=== PATIENT | female | born 1935 | race Caucasian/White ===

== ENCOUNTER 2017-07-02 10:27 | Emergency (ER) | payer MEDICARE, OTHER ==
[~2017-07-02] VITALS: Ht 162.6 cm; Wt 53.5 kg
[~2017-07-02 10:27] MED LIST: "\\\"BP MED\\\""; "\\\"CHOLESTEROL MED\\\""; ASPI325 PO
[2017-07-02 11:26] LABS: BASOPHILS ABSOLUTE AUTO 0.07 K/mm3 (0.00-0.23); BASOPHILS PERCENT AUTO 1 % (0-2); EOSINOPHILS ABSOLUTE AUTO 0.24 K/mm3 (0.00-0.68); EOSINOPHILS PERCENT AUTO 3 % (0-6); Hematocrit 42.9 % (33.0-51.0); Hemoglobin 13.4 g/dL (11.5-16.0); IMMATURE GRAN ABSOLUTE AUTO 0.01 K/mm3 (0.00-0.10); IMMATURE GRAN PERCENT AUTO 0 % (0-1); LYMPHOCYTES ABSOLUTE AUTO 2.37 K/mm3 (0.84-5.20); LYMPHOCYTES PERCENT AUTO 33 % (21-46); MONOCYTES ABSOLUTE AUTO 0.83 K/mm3 (0.16-1.47); MONOCYTES PERCENT AUTO 12 % (4-13); Mean Corpuscular HGB 28.3 pg (26.0-34.0); Mean Corpuscular HGB Conc 31.2 g/dL (31.5-36.5); Mean Corpuscular Volume 91 fL (80-100); NEUTROPHILS ABSOLUTE AUTO 3.69 K/mm3 (1.96-9.15); NEUTROPHILS PERCENT AUTO 51 % (41-73); Platelet Count 352 K/mm3 (150-400); RDW Coefficient Variation 13.5 % (11.7-14.2); RDW Standard Deviation 44.7 fL (35.1-46.3); Red Blood Cell Count 4.74 M/mm3 (3.80-5.20); White Blood Cell Count 7.21 K/mm3 (4.00-11.30)
[2017-07-02 11:49] LABS: Troponin I <0.015 ng/mL (0.000-0.040)
[2017-07-02 11:52] LABS: Alanine Aminotransfer (ALT/SGP 17 U/L (12-78); Albumin/Globulin Ratio 1.1 (0.8-1.8); Alk Phos 62 U/L (50-136); Anion Gap 8 mmol/L (6-16); Aspartate Aminotrans (AST/SGOT 20 U/L (12-37); Bilirubin, Total 0.3 mg/dL (0.1-1.0); Blood Urea Nitrogen 24 mg/dL (8-24); Bun/Creatinine Ratio 16.2 (12.0-20.0); CO2, Blood 25 mmol/L (21-32); Chloride, Blood 106 mmol/L (98-108); Creatinine, Blood 1.48 mg/dL (0.40-1.00); Globulin, Blood 3.7 g/dL (2.2-4.0); Glomerular Filtration Rate 36 (60-); Glucose, Blood 113 mg/dL (70-99); Potassium, Blood 4.6 mmol/L (3.5-5.5); Sodium, Blood 139 mmol/L (136-145); Total Protein, Blood 7.7 g/dL (6.4-8.2)
[2017-07-02] MEDS ORDERED: CARV6.25 PO (14:47)
[2017-07-02] MEDS ORDERED: ALBU90OI6 INH (14:47)
[2017-07-02 15:37] LABS: Source, Urine Clean Catch
[2017-07-02 15:43] LABS: Bilirubin, Urine Neg (Neg); Blood, Urine Neg (Neg); Glucose Qualitative, Urine Neg (Neg); Ketones, Urine Neg (Neg); Leukocyte Esterase, Urine Neg (Neg); Nitrite, Urine Neg (Neg); Protein, Urine 3+ (Neg); Specific Gravity, Urine 1.015 (1.003-1.022); Urobilinogen, Urine NORM (Normal)
[2017-07-02 15:56] LABS: Appearance, Urine Clear (Clear); Color, Urine Pale Yellow (P-Yellow)
[2017-07-02 15:59] LABS: Bacteria Rare /hpf; Red Blood Cells, Urine 0-2 /hpf (0-2); Squamous Epithelial Cells Few /hpf (Few); White Blood Cells, Urine 0-2 /hpf (0-5)
== END 2017-07-02 16:38 | disposition home or self-care (01) ==
LOC: ER 10:27
PROVIDERS: Emergency Medicine
DX: R42 Dizziness and giddiness (principal); I10 Essential (primary) hypertension; Z79.82 Long term (current) use of aspirin; Z79.899 Other long term (current) drug therapy; E78.00 Pure hypercholesterolemia, unspecified; Z87.891 Personal history of nicotine dependence
CPT/HCPCS: 36415; 71046; 80053; 81001; 84484; 85025; 93005; 93010; 96374; 99284

== ENCOUNTER 2017-09-28 15:35 | Emergency (ER) | payer MEDICARE, OTHER ==
[~2017-09-28] VITALS: Ht 160 cm; Wt 65.8 kg
[~2017-09-28 15:35] MED LIST changes: +ALBU90OI6 INH; +CARV6.25 PO
[2017-09-28 16:31] LABS: BASOPHILS ABSOLUTE AUTO 0.08 K/mm3 (0.00-0.23); BASOPHILS PERCENT AUTO 1 % (0-2); EOSINOPHILS PERCENT AUTO 5 % (0-6); Hematocrit 41.5 % (33.0-51.0); Hemoglobin 12.8 g/dL (11.5-16.0); IMMATURE GRAN ABSOLUTE AUTO 0.01 K/mm3 (0.00-0.10); IMMATURE GRAN PERCENT AUTO 0 % (0-1); LYMPHOCYTES ABSOLUTE AUTO 2.36 K/mm3 (0.84-5.20); LYMPHOCYTES PERCENT AUTO 36 % (21-46); MONOCYTES ABSOLUTE AUTO 0.84 K/mm3 (0.16-1.47); MONOCYTES PERCENT AUTO 13 % (4-13); Mean Corpuscular HGB 28.2 pg (26.0-34.0); Mean Corpuscular HGB Conc 30.8 g/dL (31.5-36.5); Mean Corpuscular Volume 91 fL (80-100); NEUTROPHILS ABSOLUTE AUTO 3.02 K/mm3 (1.96-9.15); NEUTROPHILS PERCENT AUTO 46 % (41-73); Platelet Count 303 K/mm3 (150-400); RDW Standard Deviation 43.4 fL (35.1-46.3); Red Blood Cell Count 4.54 M/mm3 (3.80-5.20); White Blood Cell Count 6.61 K/mm3 (4.00-11.30)
[2017-09-28 17:07] LABS: Albumin, Blood 4.1 g/dL (3.4-5.0); Albumin/Globulin Ratio 1.2 (0.8-1.8); Bilirubin, Total 0.4 mg/dL (0.1-1.0); Bun/Creatinine Ratio 17.6 (12.0-20.0); Calcium, Blood 8.9 mg/dL (8.5-10.1); Creatinine, Blood 1.88 mg/dL (0.40-1.00); Globulin, Blood 3.5 g/dL (2.2-4.0); Potassium, Blood 5.8 mmol/L (3.5-5.5); Total Protein, Blood 7.6 g/dL (6.4-8.2)
[2017-09-28] MEDS ORDERED: [UNRECOGNIZED DRUG - REMARK] (19:43)
[2017-09-28 19:54] LABS: International Normalized Ratio 0.96
[2017-09-28 20:55] LABS: Calcium, Ionized (POC) 1.17 mmol/L (1.10-1.46); Chloride (POC) 105 mmol/L (98-108); Creatinine (POC) 1.6 mg/dL (0.6-1.0); Glucose (ISTAT POC) 98 mg/dL (70-99); Hemoglobin (POC) 12.6 g/dL (12.0-16.0); Potassium (POC) 5.5 mmol/L (3.5-5.5); Sodium (POC) 143 mmol/L (135-148); Total CO2 (POC) 25 mmol/L (21-32)
== END 2017-09-28 21:04 | disposition home or self-care (01) ==
LOC: ER 15:35
PROVIDERS: Emergency Medicine
DX: K92.1 Melena (principal); Z79.899 Other long term (current) drug therapy; Z79.82 Long term (current) use of aspirin; E78.00 Pure hypercholesterolemia, unspecified; J44.9 Chronic obstructive pulmonary disease, unspecified; Z87.891 Personal history of nicotine dependence
CPT/HCPCS: 36415; 80047; 80053; 82272; 85014; 85025; 85610; 85730; 93005; 93010; 96360; 99284; J7030

== ENCOUNTER 2018-10-31 13:40 | Emergency (ER) | payer MEDICARE, OTHER ==
[~2018-10-31 13:40] MED LIST changes: +[UNRECOGNIZED DRUG - REMARK]
== END 2018-10-31 14:03 | disposition left against medical advice (07) ==
LOC: ER 13:40
DX: Z53.21 Procedure and treatment not carried out due to patient leaving prior to being seen by health care provider (principal)

== ENCOUNTER 2019-09-26 01:25 | Emergency (ER) | payer MEDICARE, OTHER ==
[~2019-09-26] VITALS: Ht 154.9 cm; Wt 49.9 kg
== END 2019-09-26 02:01 | disposition home or self-care (01) ==
LOC: ER 01:25
DX: F03.90 Unspecified dementia, unspecified severity, without behavioral disturbance, psychotic disturbance, mood disturbance, and anxiety (principal); I10 Essential (primary) hypertension; J44.9 Chronic obstructive pulmonary disease, unspecified; E78.5 Hyperlipidemia, unspecified; Z79.82 Long term (current) use of aspirin; Z79.899 Other long term (current) drug therapy; Z87.891 Personal history of nicotine dependence
CPT/HCPCS: 99284

== ENCOUNTER → 2019-09-28 | Outpatient (CLI) | payer MEDICARE, OTHER ==
[2019-09-28 17:09] LABS: Source, Urine Clean Catch
[2019-09-28 17:58] LABS: Bilirubin, Urine Neg (Neg); Blood, Urine Neg (Neg); Glucose Qualitative, Urine Neg (Neg); Ketones, Urine Neg (Neg); Leukocyte Esterase, Urine 1+ (Neg); Nitrite, Urine Neg (Neg); Protein, Urine 2+ (Neg); Urobilinogen, Urine NORM (Normal)
[2019-09-28 18:07] LABS: Appearance, Urine Clear (Clear); Color, Urine Yellow (P-Yellow)
[2019-09-28 18:08] LABS: Bacteria Mod /hpf; Mucus Light (0-Heavy); Red Blood Cells, Urine 0-2 /hpf (0-2); Squamous Epithelial Cells Few /hpf (Few); White Blood Cells, Urine 0-2 /hpf (0-5)
== END | disposition home or self-care (01) ==
LOC: LAB SHORT 17:06 → LAB 17:06
PROVIDERS: Internal Medicine
DX: N39.0 Urinary tract infection, site not specified (principal)
CPT/HCPCS: 81001; 87086

== ENCOUNTER 2019-10-11 00:33 | Inpatient (IN) | payer MEDICARE, OTHER ==
[~2019-10-11] VITALS: Ht 154.9 cm; Wt 95.2 kg
[2019-10-11] MEDS ORDERED: DONE5 PO (00:44)
[2019-10-11] MEDS ORDERED: PRAV20 PO (00:45)
[2019-10-11] MEDS ORDERED: OLAN5 PO (00:45)
[2019-10-11] MEDS ORDERED: OMEP20ER PO (00:45)
[2019-10-11] MEDS ORDERED: Eucerin Creme454 GM TOP (00:46)
[2019-10-11] MEDS ORDERED: TRAZ100 PO (00:46)
[2019-10-11] MEDS ORDERED: BISA10S PR (00:47)
[2019-10-11] MEDS ORDERED: ACET325 PO (00:47)
[2019-10-11] MEDS ORDERED: ANTACID PLUS A355 M2 PO (00:48)
[2019-10-11] MEDS ORDERED: Loperamide2 MG PO (00:49)
[2019-10-11] MEDS ORDERED: QUET25 PO (00:49)
[2019-10-11 01:57] LABS: BASOPHILS ABSOLUTE AUTO 0.06 K/mm3 (0.00-0.23); BASOPHILS PERCENT AUTO 0 % (0-2); EOSINOPHILS ABSOLUTE AUTO 0.66 K/mm3 (0.00-0.68); EOSINOPHILS PERCENT AUTO 5 % (0-6); Hematocrit 37.4 % (33.0-51.0); Hemoglobin 11.7 g/dL (11.5-16.0); IMMATURE GRAN ABSOLUTE AUTO 0.07 K/mm3 (0.00-0.10); IMMATURE GRAN PERCENT AUTO 1 % (0-1); LYMPHOCYTES ABSOLUTE AUTO 1.87 K/mm3 (0.84-5.20); LYMPHOCYTES PERCENT AUTO 13 % (21-46); MONOCYTES ABSOLUTE AUTO 1.01 K/mm3 (0.16-1.47); MONOCYTES PERCENT AUTO 7 % (4-13); Mean Corpuscular HGB 29.1 pg (26.0-34.0); Mean Corpuscular HGB Conc 31.3 g/dL (31.5-36.5); Mean Corpuscular Volume 93 fL (80-100); NEUTROPHILS PERCENT AUTO 75 % (41-73); RDW Coefficient Variation 13.5 % (11.7-14.2); RDW Standard Deviation 46.3 fL (35.1-46.3); Red Blood Cell Count 4.02 M/mm3 (3.80-5.20); White Blood Cell Count 14.67 K/mm3 (4.00-11.30)
[2019-10-11 02:00] LABS: Albumin, Blood 3.6 g/dL (3.4-5.0); Albumin/Globulin Ratio 0.9 (0.8-1.8); Bilirubin, Total 0.3 mg/dL (0.1-1.0); Bun/Creatinine Ratio 23.1 (12.0-20.0); Calcium, Blood 8.5 mg/dL (8.5-10.1); Creatinine, Blood 1.3 mg/dL (0.40-1.00); Globulin, Blood 4.2 g/dL (2.2-4.0); Total Protein, Blood 7.8 g/dL (6.4-8.2)
[2019-10-11 02:16] LABS: Mean Platelet Volume 10.6 fL (9.1-12.4); Platelet Count 313 K/mm3 (150-400)
[2019-10-11] MEDS ORDERED: Tussin Dm Clea118 ML PO (02:59)
[2019-10-11] MEDS ORDERED: MILK OF MA400 MG/5 M PO (03:02)
[2019-10-11] MEDS ORDERED: SERT100 PO (03:03)
[2019-10-11 11:09] LABS: Source, Urine Clean Catch
[2019-10-11 11:15] LABS: Bilirubin, Urine Neg (Neg); Blood, Urine Neg (Neg); Glucose Qualitative, Urine Neg (Neg); Ketones, Urine Neg (Neg); Leukocyte Esterase, Urine Neg (Neg); Nitrite, Urine Neg (Neg); Protein, Urine 3+ (Neg); Urobilinogen, Urine NORM (Normal)
[2019-10-11 11:29] LABS: Appearance, Urine Clear (Clear); Color, Urine Yellow (P-Yellow)
[2019-10-11 11:30] LABS: Red Blood Cells, Urine 0-2 /hpf (0-2); White Blood Cells, Urine 0-2 /hpf (0-5)
[2019-10-11 11:31] LABS: Bacteria Few /hpf; Squamous Epithelial Cells Rare /hpf (Few)
[2019-10-11 12:51] LABS: Hematocrit 31.4 % (33.0-51.0); Hemoglobin 9.6 g/dL (11.5-16.0); Mean Corpuscular HGB 29.1 pg (26.0-34.0); Mean Corpuscular HGB Conc 30.6 g/dL (31.5-36.5); Mean Corpuscular Volume 95 fL (80-100); Mean Platelet Volume 10.6 fL (9.1-12.4); Platelet Count 265 K/mm3 (150-400); RDW Coefficient Variation 13.6 % (11.7-14.2); RDW Standard Deviation 47.5 fL (35.1-46.3); White Blood Cell Count 14.86 K/mm3 (4.00-11.30)
[2019-10-11 13:36] LABS: Albumin, Blood 2.9 g/dL (3.4-5.0); Albumin/Globulin Ratio 0.8 (0.8-1.8); Bilirubin, Total 0.3 mg/dL (0.1-1.0); Bun/Creatinine Ratio 23.5 (12.0-20.0); Calcium, Blood 7.8 mg/dL (8.5-10.1); Creatinine, Blood 1.36 mg/dL (0.40-1.00); Globulin, Blood 3.5 g/dL (2.2-4.0); Potassium, Blood 4.9 mmol/L (3.5-5.5); Total Protein, Blood 6.4 g/dL (6.4-8.2)
[2019-10-12 04:30] LABS: BASOPHILS ABSOLUTE AUTO 0.02 K/mm3 (0.00-0.23); BASOPHILS PERCENT AUTO 0 % (0-2); EOSINOPHILS ABSOLUTE AUTO 0.04 K/mm3 (0.00-0.68); EOSINOPHILS PERCENT AUTO 0 % (0-6); Hematocrit 26.7 % (33.0-51.0); Hemoglobin 7.9 g/dL (11.5-16.0); IMMATURE GRAN ABSOLUTE AUTO 0.05 K/mm3 (0.00-0.10); IMMATURE GRAN PERCENT AUTO 0 % (0-1); LYMPHOCYTES ABSOLUTE AUTO 0.86 K/mm3 (0.84-5.20); LYMPHOCYTES PERCENT AUTO 7 % (21-46); MONOCYTES ABSOLUTE AUTO 1.12 K/mm3 (0.16-1.47); MONOCYTES PERCENT AUTO 9 % (4-13); Mean Corpuscular HGB 28.6 pg (26.0-34.0); Mean Corpuscular HGB Conc 29.6 g/dL (31.5-36.5); Mean Corpuscular Volume 97 fL (80-100); Mean Platelet Volume 10.9 fL (9.1-12.4); NEUTROPHILS ABSOLUTE AUTO 9.82 K/mm3 (1.96-9.15); NEUTROPHILS PERCENT AUTO 83 % (41-73); Platelet Count 234 K/mm3 (150-400); RDW Coefficient Variation 13.8 % (11.7-14.2); RDW Standard Deviation 49.1 fL (35.1-46.3); Red Blood Cell Count 2.76 M/mm3 (3.80-5.20); White Blood Cell Count 11.91 K/mm3 (4.00-11.30)
[2019-10-12 05:09] LABS: Bun/Creatinine Ratio 25.5 (12.0-20.0); Calcium, Blood 7.8 mg/dL (8.5-10.1); Creatinine, Blood 1.53 mg/dL (0.40-1.00); Magnesium, Blood 2.8 mg/dL (1.6-2.4); Potassium, Blood 5.5 mmol/L (3.5-5.5)
[2019-10-14] MEDS ORDERED: MELATONIN5 M1 PO (11:25)
== END 2019-10-14 12:58 | disposition home health service (06) | DRG 482 ==
LOC: ER 00:33 → MEDS 00:35
PROVIDERS: Emergency Medicine; Orthopaedic Surgery; ADMIT Internal Medicine
PROC: 0QH636Z Insertion of Intramedullary Internal Fixation Device into Right Upper Femur, Percutaneous Approach (ICD-10-PCS; principal; 2019-10-11 14:00)
DX: S72.141A Displaced intertrochanteric fracture of right femur, initial encounter for closed fracture (principal); W19.XXXA Unspecified fall, initial encounter; F03.90 Unspecified dementia, unspecified severity, without behavioral disturbance, psychotic disturbance, mood disturbance, and anxiety; N18.3 Chronic kidney disease, stage 3 (moderate); E78.5 Hyperlipidemia, unspecified; K21.9 Gastro-esophageal reflux disease without esophagitis; I12.9 Hypertensive chronic kidney disease with stage 1 through stage 4 chronic kidney disease, or unspecified chronic kidney disease; J44.9 Chronic obstructive pulmonary disease, unspecified; E87.5 Hyperkalemia; R09.02 Hypoxemia; D63.1 Anemia in chronic kidney disease; D50.0 Iron deficiency anemia secondary to blood loss (chronic)
CPT/HCPCS: 36415; 64450; 71045; 72170; 73502; 80048; 80053; 81001; 83735; 85025; 85027; 93005; 93010; 94762; 96374-59; 97162; 97165; 97530; 99285-25; A9270; A9270-GY; C1713; C1769; J0360; J0690; J1100; J1885; J2370; J2405; J2704; J3010; J7030; J7120

== ENCOUNTER 2019-11-03 00:22 | Day surgery (SDC) | payer MEDICARE, OTHER ==
[~2019-11-03 00:22] MED LIST changes: +ACET325 PO; +ANTACID PLUS A355 M2 PO; +BISA10S PR; +DONE5 PO; +Eucerin Creme454 GM TOP; +Loperamide2 MG PO; +MELATONIN5 M1 PO; +MILK OF MA400 MG/5 M PO; +OLAN5 PO; +OMEP20ER PO; +PRAV20 PO; +QUET25 PO; +SERT100 PO; +TRAZ100 PO; +Tussin Dm Clea118 ML PO
== END 2019-11-03 23:48 | disposition home or self-care (01) ==
LOC: WOUND 00:22
DX: L89.610 Pressure ulcer of right heel, unstageable (principal); I73.9 Peripheral vascular disease, unspecified; J44.9 Chronic obstructive pulmonary disease, unspecified; I10 Essential (primary) hypertension; E78.5 Hyperlipidemia, unspecified; Z87.891 Personal history of nicotine dependence; Z79.899 Other long term (current) drug therapy; Z79.82 Long term (current) use of aspirin
CPT/HCPCS: G0463

== ENCOUNTER 2019-11-10 00:17 | Day surgery (SDC) | payer MEDICARE, OTHER | END 2019-11-10 23:20 | disposition home or self-care (01) | LOC: WOUND 00:17 | DX: L89.610 Pressure ulcer of right heel, unstageable (principal); I73.9 Peripheral vascular disease, unspecified; J44.9 Chronic obstructive pulmonary disease, unspecified; I10 Essential (primary) hypertension; E78.5 Hyperlipidemia, unspecified; Z87.891 Personal history of nicotine dependence; Z79.82 Long term (current) use of aspirin; Z79.899 Other long term (current) drug therapy | CPT/HCPCS: G0463 ==

== ENCOUNTER 2019-11-17 00:14 | Day surgery (SDC) | payer MEDICARE, OTHER | END 2019-11-17 22:49 | disposition home or self-care (01) | LOC: WOUND 00:14 | DX: L89.610 Pressure ulcer of right heel, unstageable (principal); I73.9 Peripheral vascular disease, unspecified; J44.9 Chronic obstructive pulmonary disease, unspecified; I10 Essential (primary) hypertension; E78.5 Hyperlipidemia, unspecified; Z87.891 Personal history of nicotine dependence; Z79.82 Long term (current) use of aspirin; Z79.899 Other long term (current) drug therapy | CPT/HCPCS: G0463 ==

== ENCOUNTER 2019-11-24 00:23 | Day surgery (SDC) | payer MEDICARE, OTHER ==
[2019-11-29] MEDS ORDERED: DONE5 PO (09:06)
[2019-11-29] MEDS ORDERED: TRAZ100 PO (09:06)
== END 2019-11-24 23:18 | disposition home or self-care (01) ==
LOC: WOUND 00:23
DX: L89.610 Pressure ulcer of right heel, unstageable (principal); I73.9 Peripheral vascular disease, unspecified; Z87.891 Personal history of nicotine dependence; J44.9 Chronic obstructive pulmonary disease, unspecified; I10 Essential (primary) hypertension; E78.5 Hyperlipidemia, unspecified

== ENCOUNTER 2019-11-29 09:52 | Day surgery (SDC) | payer MEDICARE, OTHER ==
[~2019-11-29] VITALS: Ht 165.1 cm; Wt 41.8 kg
[2019-11-29 10:43] LABS: BASOPHILS ABSOLUTE AUTO 0.07 K/mm3 (0.00-0.23); BASOPHILS PERCENT AUTO 1 % (0-2); EOSINOPHILS ABSOLUTE AUTO 0.32 K/mm3 (0.00-0.68); EOSINOPHILS PERCENT AUTO 5 % (0-6); Hematocrit 26.3 % (33.0-51.0); Hemoglobin 7.5 g/dL (11.5-16.0); IMMATURE GRAN ABSOLUTE AUTO 0.03 K/mm3 (0.00-0.10); IMMATURE GRAN PERCENT AUTO 1 % (0-1); LYMPHOCYTES ABSOLUTE AUTO 1.52 K/mm3 (0.84-5.20); LYMPHOCYTES PERCENT AUTO 26 % (21-46); MONOCYTES ABSOLUTE AUTO 0.87 K/mm3 (0.16-1.47); MONOCYTES PERCENT AUTO 15 % (4-13); Mean Corpuscular HGB 25.4 pg (26.0-34.0); Mean Corpuscular HGB Conc 28.5 g/dL (31.5-36.5); Mean Corpuscular Volume 89 fL (80-100); Mean Platelet Volume 9.5 fL (9.1-12.4); NEUTROPHILS ABSOLUTE AUTO 3.08 K/mm3 (1.96-9.15); NEUTROPHILS PERCENT AUTO 52 % (41-73); NRBC ABSOLUTE 0.02 K/mm3 (0.00-0.02); NRBC Auto 0.3 /100 WBC (0.0-0.2); Platelet Count 335 K/mm3 (150-400); RDW Coefficient Variation 14.9 % (11.7-14.2); RDW Standard Deviation 48.5 fL (35.1-46.3); Red Blood Cell Count 2.95 M/mm3 (3.80-5.20); White Blood Cell Count 5.89 K/mm3 (4.00-11.30)
[2019-11-29 11:02] LABS: Bun/Creatinine Ratio 25.4 (12.0-20.0); Calcium, Blood 7.8 mg/dL (8.5-10.1); Creatinine, Blood 1.22 mg/dL (0.40-1.00); Potassium, Blood 4.9 mmol/L (3.5-5.5)
--- NOTE | 2019-11-29 14:04 | NUR ---
PT RETURNS FROM PROCEDURE WITH FEM STOP IN PLACE TO THE LEFT GROIN SITE, LARGE HEMATOMA NOTED. PRESSURE APPLIED. DAUGHTER AT BEDSIDE. PT CONFUSED
--- NOTE | 2019-11-29 14:19 | NUR ---
Fentanyl 25 mcg IV given for restlessness.
--- NOTE | 2019-11-29 14:29 | NUR ---
PT RESTING QUIETLY.
[2019-11-29 14:32] LABS: BASOPHILS ABSOLUTE AUTO 0.07 K/mm3 (0.00-0.23); BASOPHILS PERCENT AUTO 1 % (0-2); EOSINOPHILS ABSOLUTE AUTO 0.33 K/mm3 (0.00-0.68); EOSINOPHILS PERCENT AUTO 5 % (0-6); Hematocrit 24.4 % (33.0-51.0); Hemoglobin 6.8 g/dL (11.5-16.0); IMMATURE GRAN ABSOLUTE AUTO 0.02 K/mm3 (0.00-0.10); IMMATURE GRAN PERCENT AUTO 0 % (0-1); LYMPHOCYTES ABSOLUTE AUTO 1.78 K/mm3 (0.84-5.20); LYMPHOCYTES PERCENT AUTO 29 % (21-46); MONOCYTES ABSOLUTE AUTO 0.91 K/mm3 (0.16-1.47); MONOCYTES PERCENT AUTO 15 % (4-13); Mean Corpuscular HGB 25.2 pg (26.0-34.0); Mean Corpuscular HGB Conc 27.9 g/dL (31.5-36.5); Mean Corpuscular Volume 90 fL (80-100); Mean Platelet Volume 10.4 fL (9.1-12.4); NEUTROPHILS ABSOLUTE AUTO 3.05 K/mm3 (1.96-9.15); NEUTROPHILS PERCENT AUTO 50 % (41-73); NRBC ABSOLUTE 0.03 K/mm3 (0.00-0.02); NRBC Auto 0.5 /100 WBC (0.0-0.2); Platelet Count 350 K/mm3 (150-400); RDW Standard Deviation 49.2 fL (35.1-46.3); White Blood Cell Count 6.16 K/mm3 (4.00-11.30)
--- NOTE | 2019-11-29 14:43 | NUR ---
PRESSURE RELEASED FROM FEMSTOP. LEFT GROIN SITE SOFT. PT RESTING. OXYGEN APPLIED 3L/NC AT 1420 FOR SP02 81%.
--- NOTE | 2019-11-29 14:50 | NUR ---
GROIN HARD. FEMSTOP INFLATED TO 160MM HGB. MANUAL PRESSURE HELD.SEE VS FOR BP CHANGES. IV INFUSING AT 200 ML/HR.
--- NOTE | 2019-11-29 15:00 | NUR ---
IV DECREASED TO 100 ML/HR. BP STABLE. GROIN SITE SOFT NONTENDER. FEMSTOP CONTINUES.
--- NOTE | 2019-11-29 15:20 | NUR ---
DR. YANEZ HERE TO EVALUATE PT. ORDERS GIVEN TO TRANSFUSE BLOOD.
--- NOTE | 2019-11-29 15:30 | NUR ---
BP 90/50. IV FLUIDS WIDE OPEN ON PRESSURE BAG. DR. YANEZ NOTIFIED. BED IN [place].
--- NOTE | 2019-11-29 15:32 | NUR ---
BP 88/44. SITE SOFT. FEMSTOP IN PLACE.
--- NOTE | 2019-11-29 15:45 | NUR ---
BLOOD OBTAINED TO INFUSE. PT TAKEN TO DEICER FINISHER.
[2019-11-29 18:21] LABS: Source, Urine Catheter
[2019-11-29 18:29] LABS: Bilirubin, Urine Neg (Neg); Blood, Urine 1+ (Neg); Glucose Qualitative, Urine Neg (Neg); Ketones, Urine Neg (Neg); Leukocyte Esterase, Urine Neg (Neg); Nitrite, Urine Neg (Neg); Protein, Urine 2+ (Neg); Urobilinogen, Urine NORM (Normal)
--- NOTE | 2019-11-29 18:29 | NUR ---
ADMIT ASSESSMENT- PT ADMITTED TO ICU EXTENDED RECOVERY. PT ASLEEP, RESPIRATORY RATE 10 BPM UNLABORED, OXYGEN SATURATIONS 95% ON ROOM AIR. AWAKENS TO TOUCH, OPENS EYES, MUMBLES, BACK TO SLEEP QUICKLY. NSR. BP ELEVATED. ABDOMEN SOFT. LARGE HEMATOMA LEFT GROIN, ANGIOSEAL INTACT RIGHT FEMORAL SITE DI, NO HEMATOMA. DIFFICULTY OBTAINING PULSES, DOPPLE RIGHT DP/RIGHT PT, LEFT PT, LEFT FOOT COLD, DUSKY. REVIEWED WITH ARCHITECTURAL MODELER RN, WILL NOTIFY DR. YANEZ. PIV X 2 INTACT, NS TKO
[2019-11-29 18:39] LABS: Appearance, Urine Clear (Clear); Bacteria Not Seen /hpf; Color, Urine Yellow (P-Yellow); Red Blood Cells, Urine 0-2 /hpf (0-2); Squamous Epithelial Cells Not Seen /hpf (Few); White Blood Cells, Urine 0-2 /hpf (0-5)
--- NOTE | 2019-11-29 19:29 | NUR ---
PT DOPPLER PULSED NOTED X4 IN FEET BUT VERY FAINT ON L SIDE. DR YANEZ IN TO SEE AND EVALUATE PT STATUS AND WILL F/U WITH NIGHTS. PT REMAINS QUITE SEDATE NOT MAKING GOOD EYE CONTACT OR VERBAL RESPONSE AT THIS TIME. ROCHA IS PATENT OF CLEAR URINE. AT THIS TIME. LUNGS ARE CLEAR, L GROIN HEMATOMA REMAINS UNCHANGED AND SHOWN TO NOC SHIFT RN. THERE IS NOT CURRENTLY ANY IVF INFUSING DUE TO ELEVATED BP NOTED. PT IS IN SR.
--- NOTE | 2019-11-29 20:20 | NUR ---
ASSUMED CARE AT 1915 PT LAYING IN BED AND SLEEPING. ROCHA IS PATENT AND DRAINING TO GRAVITY. LT PEDAL AND TIBIAL PULSE FAINTLY FOUND WITH DOPPLER. RT PEDAL PULSE MORE EASILY FOUND WITH DOPPLER. LT FOOT COOLER THEN RT FOOT. BILATERAL GROIN SITES SOFT WITH CLEAN AND DRY DRESSINGS INTACT. SBP 150'S.
--- NOTE | 2019-11-29 20:57 | NUR ---
PO MEDS PO MEDICATIONS HELD AT THIS TIME D/T PT'S DROWSINESS.
[2019-11-30 03:56] LABS: Hemoglobin 8.9 g/dL (11.5-16.0)
[2019-11-30 04:20] LABS: Bun/Creatinine Ratio 23.6 (12.0-20.0); Calcium, Blood 6.9 mg/dL (8.5-10.1); Creatinine, Blood 1.06 mg/dL (0.40-1.00); Potassium, Blood 4.4 mmol/L (3.5-5.5)
--- NOTE | 2019-11-30 05:56 | NUR ---
END OF SHIFT SUMMARY PT LAYING IN BED. ROCHA PATENT AND DRAINING TO GRAVITY. BILATERAL GROIN SITES SOFT, AND DRESSING DRY AND INTACT. PT CALM IN BED BUT CONFUSED AND WE ARE UNABLE TO UNDERSTAND HER CONVERSATION. LEFT PEDAL AND TIBIAL PULSES FOUND MORE EASILY WITH DOPPLER. LT FOOT WARMER TO TOUCH. NORMAL SALINE INFUSING AT 75 ML/HR. WILL CONTINUE TO MONITOR UNTILL REPORT IS GIVEN TO DAY RN.
--- NOTE | 2019-11-30 07:15 | NUR ---
ASSUMED CARE/DR YANEZ BEDSIDE REPORT RECIEVED. PT IS RESTING IN BED QUIETLY. AWAKENS TO VERBAL STIMULI. PT IS DROWSEY. PT IS ALERT TO SELF ONLY, PT IS CONFUSED AND FORGETFUL. PT IS FIDGETING AND PICKING AT LINES/TUBES. FOUND PT TO HAVE PULLED OUT RIGHT AC IV AND REMOVED DRESSING TO LEFT FOOT. PT WITH RIGHT GROIN SITE STABLE WITH OPSITE DRESSING IN PLACE. LEFT GROIN SITE WITH DIFFUSE SWELLING INTO LOWER ABD AND BRUISING NOTED AT SITE, UP LEFT FLANK, AND DOWN TO PERIAREA. PT VERY TENDER WITH PALPATION OF SITE. DR YANEZ UP TO SEE PT AT THIS TIME. DR. YANEZ STATES SITE LOOKS OK AND IS UNCHANGED FROM PRIOR ASSESSMENT. VITAL SIGNS STABLE AT THIS TIME. PT WITH STRONG DOPPLER PULSES PRESENT TO BILAT LOWER EXTREMITIES. HEEL PROTECTOR AND FOAM DRESSING IN PLACE TO RIGHT HEEL. NS INFUSING AT 75 ML/HR VIA LEFT AC IV. WILL CONTINUE TO MONITOR.
--- NOTE | 2019-11-30 17:53 | NUR ---
SHIFT SUMMARY PT DOING WELL THIS SHIFT. PT HAS REMAINED ALERT, BUT CONFUSED AND FORGETFUL THIS SHIFT. PT FIDGETING WITH LINES/CORDS AT TIMES. PT UNABLE TO BE REDIRECTED. BILATERAL FEMORAL GROIN ACCESS SITES HAVE REMAINED STABLE AND UNCHANGED FROM PRIOR ASSESSMENT. PULSES PRESENT TO DISTAL LOWER EXTREMITIES WITH DOPPLER. VITAL SIGNS HAVE REMAINED STABLE. PT WITH GOOD URINE OUTPUT THIS SHIFT. ROCHA CATHETER DC'D THIS AFTERNOON. DR YANEZ REQUESTED TO HAVE PT'S DAUGHTER COME IN TO SEE PT AND TALK WITH DR PRIOR TO PT DISCHARGE. PT DAUGHTER HERE AT BEDSIDE AT THIS TIME, PT PENDING DISCHARGE AFTER EVALUATION BY DR YANEZ. WILL CONTINUE TO MONITOR AND REPORT OFF TO ONCOMING RN.
--- NOTE | 2019-11-30 18:58 | NUR ---
DISCHARGE DISCHARGE PAPERWORK AND INSTRUCTIONS REVIEWED WITH PT'S DAUGHTER AND PT. PT TO BE TAKEN OUT TO VEHICLE VIA WHEELCHAIR WITH SOUND ENGINEER AUDIO CONTROL. ALL PT BELONGINGS RETURNED TO PT.
== END 2019-11-30 19:00 | disposition home or self-care (01) ==
LOC: MHTC 09:52 → ICUW 16:30 → MHTC 11-30 19:00
PROVIDERS: Radiology Diagnostic Radiology
DX: I70.234 Atherosclerosis of native arteries of right leg with ulceration of heel and midfoot (principal); L97.419 Non-pressure chronic ulcer of right heel and midfoot with unspecified severity; I12.9 Hypertensive chronic kidney disease with stage 1 through stage 4 chronic kidney disease, or unspecified chronic kidney disease; N18.9 Chronic kidney disease, unspecified; E78.5 Hyperlipidemia, unspecified; Z87.891 Personal history of nicotine dependence; Z79.82 Long term (current) use of aspirin; Z79.899 Other long term (current) drug therapy; D50.0 Iron deficiency anemia secondary to blood loss (chronic)
CPT/HCPCS: 36245; 36415; 37220; 37221; 37224; 37228; 75625; 75710; 75716; 75774; 76937; 80048; 81001; 85014; 85018; 85025; 86850; 86900; 86901; 86923; 99152; 99153; C1725; C1760; C1769; C1876; C1887; C1894; C2623; J0360; J1200; J1644; J2060; J2250; J3010; J7030; J7040; P9016; Q9967

== ENCOUNTER 2019-12-09 08:12 | Day surgery (SDC) | payer MEDICARE, OTHER | END 2019-12-09 22:42 | disposition home or self-care (01) | LOC: WOUND 08:12 | DX: L89.613 Pressure ulcer of right heel, stage 3 (principal); I73.9 Peripheral vascular disease, unspecified; E78.5 Hyperlipidemia, unspecified; I10 Essential (primary) hypertension; J44.9 Chronic obstructive pulmonary disease, unspecified; Z87.891 Personal history of nicotine dependence; F03.90 Unspecified dementia, unspecified severity, without behavioral disturbance, psychotic disturbance, mood disturbance, and anxiety; Z79.82 Long term (current) use of aspirin; Z79.899 Other long term (current) drug therapy ==

== ENCOUNTER 2019-12-15 00:17 | Day surgery (SDC) | payer MEDICARE, OTHER | END 2019-12-15 22:53 | disposition home or self-care (01) | LOC: WOUND 00:17 | DX: L89.613 Pressure ulcer of right heel, stage 3 (principal); I73.9 Peripheral vascular disease, unspecified; I10 Essential (primary) hypertension; J44.9 Chronic obstructive pulmonary disease, unspecified; E78.5 Hyperlipidemia, unspecified; Z87.891 Personal history of nicotine dependence | CPT/HCPCS: G0463 ==

== ENCOUNTER 2020-02-17 00:26 | Day surgery (SDC) | payer MEDICARE, OTHER | END 2020-02-17 22:52 | disposition home or self-care (01) | LOC: WOUND 00:26 | DX: L89.613 Pressure ulcer of right heel, stage 3 (principal); I73.9 Peripheral vascular disease, unspecified; J44.9 Chronic obstructive pulmonary disease, unspecified; E78.5 Hyperlipidemia, unspecified; I10 Essential (primary) hypertension; Z87.891 Personal history of nicotine dependence; F03.90 Unspecified dementia, unspecified severity, without behavioral disturbance, psychotic disturbance, mood disturbance, and anxiety; Z79.82 Long term (current) use of aspirin; Z79.899 Other long term (current) drug therapy | CPT/HCPCS: G0463 ==

== ENCOUNTER 2020-02-25 08:18 | Inpatient (IN) | payer MEDICARE, OTHER ==
[~2020-02-25] VITALS: Ht 154.9 cm; Wt 52.2 kg
[~2020-02-25 08:18] MED LIST changes: -ANTACID PLUS A355 M2 PO; +[UNRECOGNIZED DRUG - OTHER] PO
[2020-02-25 08:40] LABS: BASOPHILS ABSOLUTE AUTO 0.07 K/mm3 (0.00-0.23); BASOPHILS PERCENT AUTO 1 % (0-2); EOSINOPHILS ABSOLUTE AUTO 0.38 K/mm3 (0.00-0.68); EOSINOPHILS PERCENT AUTO 7 % (0-6); Hematocrit 46.9 % (33.0-51.0); Hemoglobin 13.2 g/dL (11.5-16.0); IMMATURE GRAN ABSOLUTE AUTO 0.01 K/mm3 (0.00-0.10); IMMATURE GRAN PERCENT AUTO 0 % (0-1); LYMPHOCYTES ABSOLUTE AUTO 1.93 K/mm3 (0.84-5.20); LYMPHOCYTES PERCENT AUTO 34 % (21-46); MONOCYTES ABSOLUTE AUTO 0.76 K/mm3 (0.16-1.47); MONOCYTES PERCENT AUTO 13 % (4-13); Mean Corpuscular HGB Conc 28.1 g/dL (31.5-36.5); Mean Corpuscular Volume 82 fL (80-100); Mean Platelet Volume 10.1 fL (9.1-12.4); NEUTROPHILS ABSOLUTE AUTO 2.53 K/mm3 (1.96-9.15); NEUTROPHILS PERCENT AUTO 45 % (41-73); Platelet Count 328 K/mm3 (150-400); RDW Coefficient Variation 17.9 % (11.7-14.2); RDW Standard Deviation 50.8 fL (35.1-46.3); Red Blood Cell Count 5.75 M/mm3 (3.80-5.20); White Blood Cell Count 5.68 K/mm3 (4.00-11.30)
[2020-02-25 09:03] LABS: Alanine Aminotransfer (ALT/SGP 16 U/L (12-78); Albumin, Blood 3.6 g/dL (3.4-5.0); Albumin/Globulin Ratio 0.8 (0.8-1.8); Alk Phos 126 U/L (50-136); Anion Gap 3 mmol/L (6-16); Aspartate Aminotrans (AST/SGOT 22 U/L (12-37); Bilirubin, Total 0.2 mg/dL (0.1-1.0); Blood Urea Nitrogen 38 mg/dL (8-24); Bun/Creatinine Ratio 27.9 (12.0-20.0); CO2, Blood 29 mmol/L (21-32); Calcium, Blood 8.2 mg/dL (8.5-10.1); Chloride, Blood 107 mmol/L (98-108); Creatinine, Blood 1.36 mg/dL (0.40-1.00); Globulin, Blood 4.3 g/dL (2.2-4.0); Glomerular Filtration Rate 39 (60-); Glucose, Blood 111 mg/dL (70-99); Potassium, Blood 5.9 mmol/L (3.5-5.5); Sodium, Blood 139 mmol/L (136-145); Total Protein, Blood 7.9 g/dL (6.4-8.2); Troponin I <0.015 ng/mL (0.000-0.040)
--- NOTE | 2020-02-25 11:01 | NUR ---
ED Palliative Care Consult Spoke with Dr Ron and discussed case. Pt has history of dementia and at present Pt is experiencing significant brain bleed. Neurology consulted with Pt not being a candidate for procedural intervention. Pt has POLST with wishes to be DNR and Comfort Measures Only. Pt is resting on gurney upon arrival. Pt is non responsive and appears agitated as evidenced by flailing of extremities. Pt's daughter Clarissa is present during visit. Engaged in therapeutic discussion regarding goals of care. Daughter reports Pt lived at [facility] at some point in the past in which Pt did not do well and daughter brought Pt back to live with her and . Daughter has been Pt's primary caregiver since. Prior to events leading to this ED visit, Pt was independent with ambulation, and was continent of bowel and bladder. Pt did experience significant confusion. Discussed POLST on file. Discussed options for comfort care and hospice. Educated on hospice philosophy with V/U made by daughter. Daughter reports Pt would want to focus on comfort at this stage in her life and woould like Pt placed on hospice. Daughter is requesting Pt be admitted on comfort care until hospice can be arranged. No other concerns reported at this time. Spoke with Dr Ron and Hospitalist Bebo. Discussed case and family wishes. Bebo will admit Pt to [facility] on comfort care with goal of D/C with hospice when arranged. Spoke with Ilan Wang and discussed case. Palliative Care will remain available for symptom management and supportive visits.
--- NOTE | 2020-02-25 17:34 | NUR ---
PT WAS RECIEVED TO ROOM AT 1155 WITH FAMILY PRESENT. PT IS NOT AO AT THIS TIME AND ONLY HAS UNCONTROLLED BODY MOVEMENTS. APPEARS TO HELP TO HAVE BOTH ROXANOL AND ATIVAN GIVEN PER EMAR. PT HAS BEEN CHANGED TWICE AND LOOKS PEACEFULL AT THIS TIME WILL CONTINUE TO MONITOR.
--- NOTE | 2020-02-26 04:46 | NUR ---
SHIFT SUMMARY LYING IN SEMI FOWLERS WITH EYES CLOSED. HAS RESTED WELL AFTER EACH TIME SHE WAS CLEANED AND REPOSITIONED. DAUGHTER WHO IS PRIMARY CAREGIVER AT BEDSIDE. NO NOTE OF PAIN, DISCOMFORT, OR FURTHER NEEDS AT THIS TIME. SAFETY MEASURES IN PLACE. WILL CONTINUE TO MONITOR AND GIVE HAND OFF TO ONCOMING SHIFT USING SBAR DURING BEDSIDE REPORT.
--- NOTE | 2020-02-26 08:51 | NUR ---
Pt resting in bed with her eyes closed. No family at bedside at this time. Pt appears comfortable with no S/S of distress at this time. Will discuss with family regarding choices for hospice agencies available.
--- NOTE | 2020-02-26 11:51 | NUR ---
F/U visit Pt resting in bed with her eyes closed. Pt appears comfortable with no S/S of distress at this time. Pt's family at bedside. Discussed hospice agencies available to choose from. Family reports plan to call and discuss with Pt's daughter Clarissa who Pt lives with. Family expresses no concerns at this time. Receieved call from Bedside RN Grazyna reporting family has chosen [facility]. Called and left message with Caremanager Elenita relaying family's choice for [facility]. Pt will need hospital bed, pump and pad, overbed table, and oxygen. Palliative Care will remain available.
--- NOTE | 2020-02-26 17:19 | NUR ---
PT HAS BEEN TURNED TODAY EVERY COUPLE OF HOURS. PT HAS NOT BEEN WET AND UNRESPONSIVE. FAMILY HAS BEEN IN AND OUT TO SEE HER. PT REPOSITIONED AND MADE COMFORTABLE, BUT NO MEDS HAVE BEEN NEEDED TODAY. WILL CONTINUE TO MONITOR.
--- NOTE | 2020-02-26 20:29 | NUR ---
PATIENT RESTING COMFORTABLY IN BED. DOES NOT APPEAR TO BE IN PAIN AND IS HAVING REGULAR SHALLOW BREATHS. VISITOR AT BEDSIDE.
--- NOTE | 2020-02-27 01:07 | NUR ---
PATIENT AND HER DAUGHTER BOTH SLEEPING. NO NEEDS EXPRESSED.
--- NOTE | 2020-02-27 07:34 | NUR ---
SHIFT SUMMARY PATIENT'S DAUGHTER SPENT THE NIGHT IN PATIENT'S ROOM. PATIENT SLEPT OVERNIGHT WITH NO SIGN OF PAIN OR DIFFICULTY BREATHING. BREATHIN IS SLOW AND SHALLOW. IV'S PATENT AND FLUSHED. BED IN LOWEST POSITION WITH WHEELS LOCKED. CALL LIGHT WITHIN REACH. REPORT GIVEN TO ONCOMING RN.
[2020-02-27] MEDS ORDERED: ATROPINE SULFATE2 M1 SL (12:38)
[2020-02-27] MEDS ORDERED: MORP20L SL (12:38)
[2020-02-27] MEDS ORDERED: TRANSDERM-SCOP1 EAC1 TOP (12:39)
--- NOTE | 2020-02-27 17:21 | NUR ---
PT DISCHARGED VIA [facility] AT 1516 WITH FAMILY PRESENT. PT TO GO HOME ON HOSPICE. HOSPICE NURSE WAS TO MEET FAMILY AT HOME. PT WAS COMFORTABLE AND IN NO DISTRESS TODAY. ALL PERSONAL BELONGINGS WERE COLLECTED BY FAMILY PRIOR TO DISCHARGE. SPOKE WITH FAMILY ON SIMPLE CARE AND TO TURN AND USE PILLOWS FOR COMFORT.
== END 2020-02-27 15:16 | disposition hospice, home (50) | DRG 65 ==
LOC: ER 08:18 → MEDS 10:29 → ER 11:48 → MEDS 11:50
PROVIDERS: Emergency Medicine; ADMIT Internal Medicine
DX: I61.9 Nontraumatic intracerebral hemorrhage, unspecified (principal); F03.91 Unspecified dementia, unspecified severity, with behavioral disturbance; G93.49 Other encephalopathy; J44.9 Chronic obstructive pulmonary disease, unspecified; E78.5 Hyperlipidemia, unspecified; K21.9 Gastro-esophageal reflux disease without esophagitis; I12.9 Hypertensive chronic kidney disease with stage 1 through stage 4 chronic kidney disease, or unspecified chronic kidney disease; N18.9 Chronic kidney disease, unspecified; Z51.5 Encounter for palliative care; Z66 Do not resuscitate; E87.5 Hyperkalemia; I65.29 Occlusion and stenosis of unspecified carotid artery; W19.XXXA Unspecified fall, initial encounter; Y92.009 Unspecified place in unspecified non-institutional (private) residence as the place of occurrence of the external cause; Z79.82 Long term (current) use of aspirin; Z87.891 Personal history of nicotine dependence
CPT/HCPCS: 70450; 72125; 80053; 84484; 85025; 93005; 93010; 96361; 96374; 96375; 99285-25; J1200; J1630; J2060; J2270; J7120; L0160